=== PATIENT | male | born 1975 | race Caucasian/White ===

== ENCOUNTER 2020-02-12 07:53 | Outpatient (CLI) | payer OTHER ==
--- NOTE | 2020-02-12 09:51 | CT ---
CT paranasal sinuses noncontrast: 02/12/2020 HISTORY: 45-year-old male with chronic sinusitis J 32.9 COMPARISON: None FINDINGS: Nasal cavity is clear. Mild S shaped deviations of the nasal septum. Right uncinate process has been partially resected. Some of the adjacent right anterior ethmoid septa are absent. There is a defect in the left maxillary sinus medial wall, which could either be a surgical antrostom y or an accessory ostium. Surgical antrostomy is favored. There is mucosal thickening of the superior posterior aspect of the left maxillary sinus wall just posterior to that defect. There is a tiny 0.5 cm polypoid density at the anterior medial corner of the left maxillary sinus. The rest of the maxillary, sphenoid, ethmoid, and frontal, sinuses, are clear. The bilateral middle ear cavities, mastoid antra, and most of the visualized mastoid air cells included in the [id number], appear to be grossly clear. There is contact between the posterior aspect of the left uncinate process with left ethmoid septa, b ut more anteriorly, the hiatus semilunaris is clear. Left agger nasi cell is slightly large, and it contacts and it abuts the vertical lamella of the left middle turbinate. This results in partial narrowing of the left frontal recesses drainage pathway, but posterior to the left agger nasi cell cell, there is a clear drainage Of the frontal recess. Right frontal recess has a drainage catheter into the lateral aspect of the ri ght middle turbinate via a tiny defect in an ethmoid septum. Bilateral sphenoethmoidal recesses are clear and patent. Bilateral anterior ethmoidal arteries are protected. There are bilateral Onodi cells superior to the sphenoid sinus. 9 mm vertical depth of bilateral old factory fossa (Keros type III). IMPRESSION: 1.) The paranasal sinuses are currently essentially clear. 2) status post functional endoscopic sinus surgery changes as described above. 3) anatomical variations as described above.
== END 2020-02-12 07:54 | disposition home or self-care (01) ==
LOC: BICCT 07:53
PROVIDERS: ATTEND Allergy & Immunology
DX: J32.9 Chronic sinusitis, unspecified (principal); Z98.890 Other specified postprocedural states